=== PATIENT | female | born 1990 | race African-American/Black ===

== ENCOUNTER 2021-12-18 15:11 | Emergency (ER) | payer MEDICAID ==
[~2021-12-18] VITALS: Ht 167.6 cm; Wt 70.0 kg
[2021-12-18] MEDS ORDERED: METOCLOPRAMIDE HCL 10MG/2ML VIAL IV ONE (16:15)
[2021-12-18] MEDS ORDERED: SODIUM CHLORIDE 0.9% 1,000 ML IV ONE (16:15)
[2021-12-18] MEDS ORDERED: ACETAMINOPHEN 325MG TABLET PO PRN (16:15)
[2021-12-18 16:50] LABS: BASOPHILS % 0.3 % (0.0-2.0); EOSINOPHILS % 0.7 % (0.0-5.0); HEMATOCRIT. 44.7 % (36.0-48.0); HEMOGLOBIN. 15.1 g/dL (12.0-16.0); LYMPHOCYTES % 28.6 % (20.0-50.0); MEAN CORPUSCULAR HEMOGLOBIN 29.5 pg (28.0-32.0); MEAN CORPUSCULAR VOLUME 87.5 fL (81.0-99.0); MEAN PLATELET VOLUME 8.1 fl (7.4-10.4); MONOCYTES % 8.2 % (2.0-8.0); NEUTROPHILS % 62.2 % (40.0-76.0); PLATELET 255 x1000/uL (130-400); RED BLOOD CELL COUNT 5.11 mill/uL (4.2-5.4)
[2021-12-18 17:03] LABS: HCG SCREEN POSITIVE
[2021-12-18 17:04] LABS: CLARITY URINE CLOUDY (CLEAR); COLOR URINE DARK YELLOW (YELLOW); KETONES URINE 2+ (NEGATIVE); LEUKOCYTE ESTERASE URINE NEGATIVE (NEGATIVE); NITRITE URINE NEGATIVE (NEGATIVE); OCCULT BLOOD URINE NEGATIVE (NEGATIVE); PH URINE 5.5 (4.5-8.0); PROTEIN URINE TRACE (NEGATIVE); SPECIFIC GRAVITY URINE 1.032 (1.005-1.030)
[2021-12-18 17:06] LABS: CHLORIDE 104 mEq/L (98-107)
[2021-12-18 17:36] LABS: B-HCG QUANTITATIVE 19405 mIU/mL (<3)
[2021-12-18 19:30] VITALS: BP 136/80
== END 2021-12-18 19:30 | disposition home or self-care (01) ==
LOC: ER 15:11
DX: O26.891 Other specified pregnancy related conditions, first trimester (principal); O20.9 Hemorrhage in early pregnancy, unspecified; R10.9 Unspecified abdominal pain; Z3A.01 Less than 8 weeks gestation of pregnancy
CPT/HCPCS: 36415; 76801; 76817; 80053; 81003; 84702; 84703; 85025; 93005; 96361; 96374; 99285; J2765; J7030

== ENCOUNTER 2021-12-20 13:06 | Emergency (ER) | payer MEDICAID ==
[~2021-12-20] VITALS: Ht 167.6 cm; Wt 70.0 kg
[2021-12-20] MEDS ORDERED: ACETAMINOPHEN 325MG TABLET PO STA (13:32)
[2021-12-20 14:28] LABS: BASOPHILS % 0.5 % (0.0-2.0); EOSINOPHILS % 0.3 % (0.0-5.0); HEMATOCRIT. 45.3 % (36.0-48.0); HEMOGLOBIN. 15.6 g/dL (12.0-16.0); LYMPHOCYTES % 21.9 % (20.0-50.0); MEAN CORPUSCULAR HEMOGLOBIN 29.9 pg (28.0-32.0); MEAN CORPUSCULAR VOLUME 86.9 fL (81.0-99.0); MEAN PLATELET VOLUME 8.3 fl (7.4-10.4); MONOCYTES % 8.1 % (2.0-8.0); NEUTROPHILS % 69.2 % (40.0-76.0); PLATELET 257 x1000/uL (130-400); RED BLOOD CELL COUNT 5.21 mill/uL (4.2-5.4); RED CELL DISTRIBUTION WIDTH 12.9 % (11.6-14.6)
[2021-12-20 14:39] LABS: CHLORIDE 103 mEq/L (98-107)
[2021-12-20 15:04] LABS: B-HCG QUANTITATIVE 24816 mIU/mL (<3)
[2021-12-20 17:19] LABS: CLARITY URINE CLOUDY (CLEAR); COLOR URINE YELLOW (YELLOW); KETONES URINE 4+ (NEGATIVE); LEUKOCYTE ESTERASE URINE TRACE (NEGATIVE); NITRITE URINE NEGATIVE (NEGATIVE); OCCULT BLOOD URINE NEGATIVE (NEGATIVE); PROTEIN URINE 1+ (NEGATIVE); SPECIFIC GRAVITY URINE 1.035 (1.005-1.030)
[2021-12-20] MEDS ORDERED: NITROFURANTOIN 100MG M/M CAPSULE PO NR (18:00)
[2021-12-20] MEDS ORDERED: NITR-87 MT (21:14)
[2021-12-20] MEDS ORDERED: DOXY1TAB3 MT (21:37)
[2021-12-20 22:00] VITALS: BP 119/70
[2021-12-20] MEDS ORDERED: ONDANSETRON 4MG ODT PO ONE (22:30)
== END 2021-12-20 22:38 | disposition home or self-care (01) ==
LOC: ER 14:15
DX: O26.891 Other specified pregnancy related conditions, first trimester (principal); O20.9 Hemorrhage in early pregnancy, unspecified; R10.9 Unspecified abdominal pain; Z3A.01 Less than 8 weeks gestation of pregnancy
CPT/HCPCS: 36415; 72195; 74181; 76801; 80053; 81003; 83690; 84702; 85025; 86850; 86900; 86901; 99285; Q0162

== ENCOUNTER 2023-05-06 13:28 | Emergency (ER) | payer MEDICAID ==
[~2023-05-06] VITALS: Ht 175.3 cm; Wt 79.0 kg
[~2023-05-06 13:28] MED LIST: DOXY1TAB3 MT; NITR-87 MT
[2023-05-06 13:40] VITALS: BP 112/77; PULSE 72; RESP 20; TEMP 97.9; O2SAT 100
== END 2023-05-06 21:22 | disposition left against medical advice (07) ==
LOC: ER 13:28
DX: T14.8XXA Other injury of unspecified body region, initial encounter (principal); Z53.21 Procedure and treatment not carried out due to patient leaving prior to being seen by health care provider; X58.XXXA Exposure to other specified factors, initial encounter; Y93.89 Activity, other specified; Y92.89 Other specified places as the place of occurrence of the external cause; Y99.8 Other external cause status
CPT/HCPCS: 99281

== ENCOUNTER 2023-07-25 08:30 | Emergency (ER) | payer MEDICAID ==
[~2023-07-25] VITALS: Ht 167.6 cm; Wt 75.0 kg
[2023-07-25 08:34] VITALS: BP 121/103; O2SAT 99
[2023-07-25 09:07] LABS: HEMOGLOBIN. 15.4 g/dL (12.0-16.0); MEAN CORPUSCULAR HEMOGLOBIN 28.7 pg (28.0-32.0); MEAN CORPUSCULAR HGB CONC 32.1 g/dL (31.0-37.0); MEAN CORPUSCULAR VOLUME 89.5 fL (81.0-99.0); MEAN PLATELET VOLUME 8.6 fl (7.4-10.4); PLATELET 227 x1000/uL (130-400); RED BLOOD CELL COUNT 5.36 mill/uL (4.2-5.4); RED CELL DISTRIBUTION WIDTH 13.2 % (11.6-14.6); WHITE BLOOD COUNT 10.1 x1000/uL (4.5-11.0)
[2023-07-25] MEDS ORDERED: HALOPERIDOL LACTATE 5MG/ML VIAL IM ONE (09:15)
[2023-07-25 09:22] LABS: ALANINE AMINOTRANSFERASE 12 IU/L (10-49); ALBUMIN 4.5 g/dL (3.2-4.8); ASPARTATE AMINOTRANSFERASE 18 IU/L (<34); BILIRUBIN TOTAL 0.6 mg/dL (0.1-1.0); CALCIUM 9.4 mg/dL (8.7-10.4); CARBON DIOXIDE 23 mEq/L (21-32); CHLORIDE 108 mEq/L (98-107); CREATININE 0.6 mg/dL (0.6-1.0); GLUCOSE 107 mg/dL (70-105); POTASSIUM 3.9 mEq/L (3.5-5.1); SODIUM 140 mEq/L (136-145); UREA NITROGEN BLOOD 6 mg/dL (9-23)
[2023-07-25 09:29] LABS: CLARITY URINE CLOUDY (CLEAR); COLOR URINE YELLOW (YELLOW); GLUCOSE URINE NEGATIVE (NEGATIVE); KETONES URINE TRACE (NEGATIVE); LEUKOCYTE ESTERASE URINE NEGATIVE (NEGATIVE); NITRITE URINE POSITIVE (NEGATIVE); OCCULT BLOOD URINE NEGATIVE (NEGATIVE); PH URINE 6.5 (4.5-8.0); PROTEIN URINE TRACE (NEGATIVE); SPECIFIC GRAVITY URINE 1.032 (1.005-1.030); UROBILINOGEN URINE 0.2 E.U./dL (0.2-1.0)
[2023-07-25 09:40] LABS: SQUAMOUS EPITHELIAL CELL URINE 3+ /lpf (RARE/1+)
[2023-07-25 09:41] LABS: BACTERIA URINE 4+
[2023-07-25 09:42] LABS: DIFFERENTIAL COMMENT 1; RBC URINE NONE SEEN /hpf (0-2); WBC URINE 0-2 /hpf (0-2)
[2023-07-25] MEDS ORDERED: NITROFURANTOIN 100MG M/M CAPSULE PO ONE (10:00)
[2023-07-25] MEDS ORDERED: ONDANSETRON 4MG ODT PO ONE (10:15)
[2023-07-25 10:16] LABS: PLATELET ESTIMATE NORMAL
[2023-07-25] MEDS ORDERED: LACTATED RINGERS 1,000 ML IV SCH (10:28)
[2023-07-25] MEDS ORDERED: FAMO-135 MT (12:20)
[2023-07-25 13:04] VITALS: PULSE 97; RESP 18; TEMP 97.3
[2023-07-26] MEDS ORDERED: LACTATED RINGERS 1,000 ML IV STA (10:28)
== END 2023-07-25 13:05 | disposition home or self-care (01) ==
LOC: ER 08:48
DX: K52.9 Noninfective gastroenteritis and colitis, unspecified (principal); K21.9 Gastro-esophageal reflux disease without esophagitis
CPT/HCPCS: 80053; 81003; 81025; 83690; 85025; 36415; 93005; 96360; 96372; 99284; Q0162; J1630; Z7610